=== PATIENT | male | born 1970 | race Caucasian/White ===

== ENCOUNTER 2022-06-26 03:02 | Outpatient (CLI) | payer MEDICAID, SELFPAY ==
[2022-06-26 12:23] LABS: Abs Immature Grans 0.04 10^3/uL (0.0-0.06); Absolute Basophil Count 0.03 10^3/uL (0.0-0.2); Absolute Eosinophil Count 0.19 10^3/uL (0.0-0.7); Absolute Lymphocyte Count 1.03 10^3/uL (1.2-3.4); Absolute Monocyte Count 0.92 10^3/uL (0.1-0.8); Absolute Neutrophil Count 6.21 10^3/uL (1.2-6.7); Basophils % 0.4; Eosinophils % 2.3; HCT 37.9 % (40.0-50.0); HGB 13.4 g/dL (13.5-17.5); Immature Grans % 0.5; Lymphocytes % 12.2; MCH 32.4 pg (27.0-33.0); MCHC 35.4 % (32.0-36.0); MCV 92 fL (80-95); MPV 8.9 fL (8.0-11.0); Monocytes % 10.9; Neutrophils % 73.7; Platelet Count 293 10^3/uL (130-400); RBC 4.13 10^6/uL (4.36-5.78); RDW 10.7 % (11.8-14.1); RDW-SD 36.7 fL; WBC 8.42 10^3/uL (4.4-10.8)
[2022-06-26 12:46] LABS: ALT 32 U/L (16-63); AST 28 U/L (15-37); Albumin 3.5 g/dL (3.4-5.0); Alkaline Phosphatase 67 U/L (46-116); Anion Gap 7.8 mmol/L (3-11); BUN 11 mg/dL (7-18); Bilirubin, Total 0.6 mg/dL (0.2-1.0); CO2 31.2 mmol/L (21.0-32.0); CREATININE 0.8 mg/dL (0.70-1.30); Calcium 9.4 mg/dL (8.5-10.1); Chloride 91 mmol/L (98-107); Estimated GFR 108.49 (mL/min/1.73m2); Glucose 112 mg/dL (74-106); Magnesium 1.7 mg/dL (1.8-2.4); Potassium 3.2 mmol/L (3.5-5.1); Sodium 130 mmol/L (136-145); Total Protein 7.4 g/dL (6.4-8.2)
== END 2022-06-26 03:03 | disposition home or self-care (01) ==
LOC: LBO 03:02
PROVIDERS: PCP Family Medicine; Visit Provider Internal Medicine Hematology & Oncology
DX: C09.9 Malignant neoplasm of tonsil, unspecified (principal)
CPT/HCPCS: 36415; 80053; 83735; 85025

== ENCOUNTER 2022-07-03 03:21 | Outpatient (CLI) | payer MEDICAID, SELFPAY ==
[2022-07-03 12:07] LABS: Abs Immature Grans 0.06 10^3/uL (0.0-0.06); Absolute Monocyte Count 0.95 10^3/uL (0.1-0.8); Basophils % 0.1; HCT 37.3 % (40.0-50.0); HGB 13.3 g/dL (13.5-17.5); Immature Grans % 0.4; Lymphocytes % 3.4; MCH 32.8 pg (27.0-33.0); MCHC 35.7 % (32.0-36.0); MCV 92 fL (80-95); MPV 8.5 fL (8.0-11.0); Monocytes % 6.4; Neutrophils % 89.7; Platelet Count 232 10^3/uL (130-400); RBC 4.06 10^6/uL (4.36-5.78); RDW-SD 37.5 fL; WBC 14.84 10^3/uL (4.4-10.8)
[2022-07-03 12:09] LABS: Absolute Basophil Count 0.01 10^3/uL (0.0-0.2); Absolute Neutrophil Count 13.31 10^3/uL (1.2-6.7)
[2022-07-03 12:23] LABS: ALT 35 U/L (16-63); AST 20 U/L (15-37); Albumin 3.3 g/dL (3.4-5.0); Alkaline Phosphatase 64 U/L (46-116); Anion Gap 7.7 mmol/L (3-11); BUN 19 mg/dL (7-18); Bilirubin, Total 0.3 mg/dL (0.2-1.0); CO2 29.3 mmol/L (21.0-32.0); CREATININE 0.7 mg/dL (0.70-1.30); Calcium 9.4 mg/dL (8.5-10.1); Chloride 94 mmol/L (98-107); Estimated GFR 112.95 (mL/min/1.73m2); Glucose 111 mg/dL (74-106); Magnesium 1.7 mg/dL (1.8-2.4); Potassium 3.7 mmol/L (3.5-5.1); Sodium 131 mmol/L (136-145); Total Protein 7.4 g/dL (6.4-8.2)
== END 2022-07-03 03:22 | disposition home or self-care (01) ==
LOC: LBO 03:21
PROVIDERS: PCP Family Medicine; Visit Provider Internal Medicine Hematology & Oncology
DX: C09.9 Malignant neoplasm of tonsil, unspecified (principal)
CPT/HCPCS: 36415; 80053; 83735; 85025

== ENCOUNTER 2022-07-10 01:52 | Outpatient (CLI) | payer MEDICAID, SELFPAY ==
[2022-07-10 08:09] LABS: Abs Immature Grans 0.05 10^3/uL (0.0-0.06); Absolute Eosinophil Count 0.01 10^3/uL (0.0-0.7); Absolute Lymphocyte Count 0.54 10^3/uL (1.2-3.4); Absolute Monocyte Count 0.86 10^3/uL (0.1-0.8); Absolute Neutrophil Count 4.27 10^3/uL (1.2-6.7); Eosinophils % 0.2; HCT 42.2 % (40.0-50.0); HGB 14.5 g/dL (13.5-17.5); Immature Grans % 0.9; Lymphocytes % 9.4; MCH 32.2 pg (27.0-33.0); MCHC 34.4 % (32.0-36.0); MCV 94 fL (80-95); MPV 7.9 fL (8.0-11.0); Neutrophils % 74.5; Platelet Count 431 10^3/uL (130-400); RBC 4.51 10^6/uL (4.36-5.78); RDW 11.3 % (11.8-14.1); WBC 5.73 10^3/uL (4.4-10.8)
[2022-07-10 08:34] LABS: ALT 62 U/L (16-63); AST 35 U/L (15-37); Albumin 3.6 g/dL (3.4-5.0); Alkaline Phosphatase 63 U/L (46-116); Anion Gap 7.5 mmol/L (3-11); BUN 6 mg/dL (7-18); Bilirubin, Total 0.3 mg/dL (0.2-1.0); CO2 29.5 mmol/L (21.0-32.0); CREATININE 0.7 mg/dL (0.70-1.30); Calcium 9.3 mg/dL (8.5-10.1); Chloride 94 mmol/L (98-107); Estimated GFR 112.95 (mL/min/1.73m2); Glucose 95 mg/dL (74-106); Magnesium 2.1 mg/dL (1.8-2.4); Potassium 3.9 mmol/L (3.5-5.1); Sodium 131 mmol/L (136-145); Total Protein 7.6 g/dL (6.4-8.2)
== END 2022-07-10 01:53 | disposition home or self-care (01) ==
LOC: LBO 01:52
PROVIDERS: PCP Family Medicine; Visit Provider Internal Medicine Hematology & Oncology
DX: C09.9 Malignant neoplasm of tonsil, unspecified (principal)
CPT/HCPCS: 36415; 80053; 83735; 85025

== ENCOUNTER 2022-07-17 02:46 | Outpatient (CLI) | payer MEDICAID, SELFPAY ==
[2022-07-17 08:32] LABS: Abs Immature Grans 0.02 10^3/uL (0.0-0.06); Absolute Basophil Count 0.03 10^3/uL (0.0-0.2); Absolute Eosinophil Count 0.01 10^3/uL (0.0-0.7); Absolute Lymphocyte Count 0.37 10^3/uL (1.2-3.4); Absolute Monocyte Count 0.46 10^3/uL (0.1-0.8); Absolute Neutrophil Count 5.07 10^3/uL (1.2-6.7); Basophils % 0.5; Eosinophils % 0.2; HCT 43.2 % (40.0-50.0); Immature Grans % 0.3; Lymphocytes % 6.2; MCH 32.1 pg (27.0-33.0); MCHC 34.7 % (32.0-36.0); MCV 93 fL (80-95); MPV 8.4 fL (8.0-11.0); Monocytes % 7.7; Neutrophils % 85.1; Platelet Count 189 10^3/uL (130-400); RBC 4.67 10^6/uL (4.36-5.78); RDW 11.4 % (11.8-14.1); RDW-SD 38.5 fL; WBC 5.96 10^3/uL (4.4-10.8)
[2022-07-17 08:47] LABS: ALT 45 U/L (16-63); AST 24 U/L (15-37); Albumin 3.6 g/dL (3.4-5.0); Alkaline Phosphatase 78 U/L (46-116); Anion Gap 5.9 mmol/L (3-11); BUN 15 mg/dL (7-18); Bilirubin, Total 0.4 mg/dL (0.2-1.0); CO2 33.1 mmol/L (21.0-32.0); CREATININE 0.7 mg/dL (0.70-1.30); Calcium 10.2 mg/dL (8.5-10.1); Chloride 94 mmol/L (98-107); Estimated GFR 112.95 (mL/min/1.73m2); Glucose 115 mg/dL (74-106); Magnesium 1.9 mg/dL (1.8-2.4); Potassium 4.4 mmol/L (3.5-5.1); Sodium 133 mmol/L (136-145)
== END 2022-07-17 02:47 | disposition home or self-care (01) ==
LOC: LBO 02:46
PROVIDERS: PCP Family Medicine; Visit Provider Internal Medicine Hematology & Oncology
DX: C09.9 Malignant neoplasm of tonsil, unspecified (principal)
CPT/HCPCS: 36415; 80053; 83735; 85025

== ENCOUNTER 2022-07-24 02:46 | Outpatient (CLI) | payer MEDICAID, SELFPAY ==
[2022-07-24 11:26] LABS: Abs Immature Grans 0.01 10^3/uL (0.0-0.06); Absolute Basophil Count 0.01 10^3/uL (0.0-0.2); Absolute Eosinophil Count 0.12 10^3/uL (0.0-0.7); Absolute Monocyte Count 0.41 10^3/uL (0.1-0.8); Absolute Neutrophil Count 4.43 10^3/uL (1.2-6.7); Basophils % 0.2; Eosinophils % 2.2; HCT 37.8 % (40.0-50.0); HGB 13.5 g/dL (13.5-17.5); Immature Grans % 0.2; Lymphocytes % 7.4; MCH 32.8 pg (27.0-33.0); MCHC 35.7 % (32.0-36.0); MCV 92 fL (80-95); MPV 8.5 fL (8.0-11.0); Monocytes % 7.6; Neutrophils % 82.4; Platelet Count 195 10^3/uL (130-400); RBC 4.11 10^6/uL (4.36-5.78); RDW 11.6 % (11.8-14.1); RDW-SD 38.7 fL; WBC 5.38 10^3/uL (4.4-10.8)
[2022-07-24 11:44] LABS: ALT 31 U/L (16-63); AST 19 U/L (15-37); Albumin 3.3 g/dL (3.4-5.0); Alkaline Phosphatase 88 U/L (46-116); Anion Gap 6.6 mmol/L (3-11); BUN 7 mg/dL (7-18); Bilirubin, Total 0.4 mg/dL (0.2-1.0); CO2 31.4 mmol/L (21.0-32.0); CREATININE 0.7 mg/dL (0.70-1.30); Calcium 9.7 mg/dL (8.5-10.1); Chloride 94 mmol/L (98-107); Estimated GFR 112.95 (mL/min/1.73m2); Glucose 137 mg/dL (74-106); Magnesium 1.7 mg/dL (1.8-2.4); Potassium 4.1 mmol/L (3.5-5.1); Sodium 132 mmol/L (136-145); Total Protein 7.6 g/dL (6.4-8.2)
== END 2022-07-24 02:47 | disposition home or self-care (01) ==
LOC: LBO 02:46
PROVIDERS: PCP Family Medicine; Visit Provider Internal Medicine Hematology & Oncology
DX: C09.9 Malignant neoplasm of tonsil, unspecified (principal)
CPT/HCPCS: 36415; 80053; 83735; 85025

== ENCOUNTER 2022-07-31 02:59 | Outpatient (CLI) | payer MEDICAID, SELFPAY ==
[2022-07-31 08:42] LABS: Abs Immature Grans 0.02 10^3/uL (0.0-0.06); Absolute Basophil Count 0.03 10^3/uL (0.0-0.2); Absolute Eosinophil Count 0.16 10^3/uL (0.0-0.7); Absolute Lymphocyte Count 0.41 10^3/uL (1.2-3.4); Absolute Monocyte Count 0.74 10^3/uL (0.1-0.8); Absolute Neutrophil Count 3.09 10^3/uL (1.2-6.7); Basophils % 0.7; Eosinophils % 3.6; HCT 38.7 % (40.0-50.0); HGB 13.3 g/dL (13.5-17.5); Immature Grans % 0.4; Lymphocytes % 9.2; MCH 32.4 pg (27.0-33.0); MCHC 34.4 % (32.0-36.0); MCV 94 fL (80-95); Monocytes % 16.6; Neutrophils % 69.5; Platelet Count 458 10^3/uL (130-400); RBC 4.11 10^6/uL (4.36-5.78); RDW 12.3 % (11.8-14.1); RDW-SD 42.3 fL; WBC 4.45 10^3/uL (4.4-10.8)
[2022-07-31 09:01] LABS: ALT 26 U/L (16-63); AST 21 U/L (15-37); Albumin 3.3 g/dL (3.4-5.0); Alkaline Phosphatase 75 U/L (46-116); Anion Gap 7.6 mmol/L (3-11); BUN 11 mg/dL (7-18); Bilirubin, Total 0.3 mg/dL (0.2-1.0); CO2 31.4 mmol/L (21.0-32.0); CREATININE 0.7 mg/dL (0.70-1.30); Chloride 97 mmol/L (98-107); Estimated GFR 112.95 (mL/min/1.73m2); Glucose 111 mg/dL (74-106); Magnesium 1.6 mg/dL (1.8-2.4); Potassium 4.7 mmol/L (3.5-5.1); Sodium 136 mmol/L (136-145); Total Protein 7.6 g/dL (6.4-8.2)
== END 2022-07-31 03:00 | disposition home or self-care (01) ==
LOC: LBO 02:59
PROVIDERS: PCP Family Medicine; Visit Provider Internal Medicine Hematology & Oncology
DX: C09.9 Malignant neoplasm of tonsil, unspecified (principal)
CPT/HCPCS: 36415; 80053; 83735; 85025

== ENCOUNTER 2022-08-07 03:09 | Outpatient (CLI) | payer MEDICAID, SELFPAY ==
[2022-08-07 08:24] LABS: Abs Immature Grans 0.02 10^3/uL (0.0-0.06); Absolute Basophil Count 0.06 10^3/uL (0.0-0.2); Absolute Eosinophil Count 0.02 10^3/uL (0.0-0.7); Absolute Lymphocyte Count 0.32 10^3/uL (1.2-3.4); Absolute Monocyte Count 0.74 10^3/uL (0.1-0.8); Absolute Neutrophil Count 4.75 10^3/uL (1.2-6.7); Eosinophils % 0.3; Immature Grans % 0.3; Lymphocytes % 5.4; MCH 32.1 pg (27.0-33.0); MCV 92 fL (80-95); MPV 8.5 fL (8.0-11.0); Monocytes % 12.5; Neutrophils % 80.5; Platelet Count 345 10^3/uL (130-400); RBC 4.36 10^6/uL (4.36-5.78); RDW 12.2 % (11.8-14.1); RDW-SD 40.9 fL; WBC 5.91 10^3/uL (4.4-10.8)
[2022-08-07 08:41] LABS: ALT 31 U/L (16-63); AST 25 U/L (15-37); Albumin 3.6 g/dL (3.4-5.0); Alkaline Phosphatase 65 U/L (46-116); BUN 14 mg/dL (7-18); Bilirubin, Total 0.3 mg/dL (0.2-1.0); CREATININE 0.7 mg/dL (0.70-1.30); Calcium 9.7 mg/dL (8.5-10.1); Chloride 96 mmol/L (98-107); Estimated GFR 112.95 (mL/min/1.73m2); Glucose 121 mg/dL (74-106); Magnesium 1.6 mg/dL (1.8-2.4); Potassium 4.5 mmol/L (3.5-5.1); Sodium 135 mmol/L (136-145); Total Protein 7.6 g/dL (6.4-8.2)
== END 2022-08-07 03:10 | disposition home or self-care (01) ==
PROVIDERS: PCP Family Medicine; Visit Provider Internal Medicine Hematology & Oncology
DX: C09.9 Malignant neoplasm of tonsil, unspecified (principal)
CPT/HCPCS: 36415; 80053; 83735; 85025

== ENCOUNTER 2022-08-14 12:53 | Outpatient (CLI) | payer MEDICAID, SELFPAY ==
[2022-08-14 09:51] LABS: Abs Immature Grans 0.03 10^3/uL (0.0-0.06); Absolute Basophil Count 0.05 10^3/uL (0.0-0.2); Absolute Eosinophil Count 0.05 10^3/uL (0.0-0.7); Absolute Lymphocyte Count 0.51 10^3/uL (1.2-3.4); Absolute Monocyte Count 1.03 10^3/uL (0.1-0.8); Absolute Neutrophil Count 7.72 10^3/uL (1.2-6.7); Basophils % 0.5; Eosinophils % 0.5; HCT 35.6 % (40.0-50.0); HGB 12.4 g/dL (13.5-17.5); Immature Grans % 0.3; Lymphocytes % 5.4; MCH 31.7 pg (27.0-33.0); MCHC 34.8 % (32.0-36.0); MCV 91 fL (80-95); Neutrophils % 82.3; Platelet Count 246 10^3/uL (130-400); RBC 3.91 10^6/uL (4.36-5.78); RDW 12.8 % (11.8-14.1); RDW-SD 41.6 fL; WBC 9.39 10^3/uL (4.4-10.8)
[2022-08-14 10:21] LABS: ALT 31 U/L (16-63); AST 18 U/L (15-37); Albumin 3.4 g/dL (3.4-5.0); Alkaline Phosphatase 65 U/L (46-116); Anion Gap 8.1 mmol/L (3-11); BUN 18 mg/dL (7-18); Bilirubin, Total 0.4 mg/dL (0.2-1.0); CO2 29.9 mmol/L (21.0-32.0); CREATININE 0.8 mg/dL (0.70-1.30); Calcium 9.6 mg/dL (8.5-10.1); Chloride 99 mmol/L (98-107); Estimated GFR 108.49 (mL/min/1.73m2); Glucose 112 mg/dL (74-106); Magnesium 1.8 mg/dL (1.8-2.4); Potassium 4.7 mmol/L (3.5-5.1); Sodium 137 mmol/L (136-145); Total Protein 7.5 g/dL (6.4-8.2)
== END 2022-08-14 12:54 | disposition home or self-care (01) ==
LOC: LBO 12:54
PROVIDERS: PCP Family Medicine; Visit Provider Internal Medicine Hematology & Oncology
DX: C09.9 Malignant neoplasm of tonsil, unspecified (principal)
CPT/HCPCS: 36415; 80053; 83735; 85025

== ENCOUNTER 2022-09-04 00:54 | Outpatient (RCR) | payer MEDICAID, SELFPAY ==
[2022-09-04 10:05] LABS: Abs Immature Grans 0.01 10^3/uL (0.0-0.06); Absolute Basophil Count 0.05 10^3/uL (0.0-0.2); Absolute Eosinophil Count 0.18 10^3/uL (0.0-0.7); Absolute Lymphocyte Count 0.56 10^3/uL (1.2-3.4); Absolute Monocyte Count 0.66 10^3/uL (0.1-0.8); Absolute Neutrophil Count 3.65 10^3/uL (1.2-6.7); Eosinophils % 3.5; HGB 12.7 g/dL (13.5-17.5); Immature Grans % 0.2; MCH 32.4 pg (27.0-33.0); MCHC 35.3 % (32.0-36.0); MCV 92 fL (80-95); MPV 8.8 fL (8.0-11.0); Monocytes % 12.9; Neutrophils % 71.4; Platelet Count 271 10^3/uL (130-400); RBC 3.92 10^6/uL (4.36-5.78); RDW 13.7 % (11.8-14.1); WBC 5.11 10^3/uL (4.4-10.8)
[2022-09-04 10:19] LABS: ALT 21 U/L (16-63); AST 16 U/L (15-37); Albumin 3.9 g/dL (3.4-5.0); Alkaline Phosphatase 62 U/L (46-116); Anion Gap 6.4 mmol/L (3-11); BUN 12 mg/dL (7-18); Bilirubin, Total 0.5 mg/dL (0.2-1.0); CO2 30.6 mmol/L (21.0-32.0); CREATININE 0.7 mg/dL (0.70-1.30); Calcium 9.6 mg/dL (8.5-10.1); Chloride 96 mmol/L (98-107); Estimated GFR 112.95 (mL/min/1.73m2); Glucose 113 mg/dL (74-106); Magnesium 1.8 mg/dL (1.8-2.4); Potassium 4.1 mmol/L (3.5-5.1); Sodium 133 mmol/L (136-145); Total Protein 7.4 g/dL (6.4-8.2)
== END 2022-09-24 23:59 | disposition home or self-care (01) ==
LOC: INF 00:54
PROVIDERS: PCP Family Medicine; Visit Provider Internal Medicine Hematology & Oncology
DX: C09.9 Malignant neoplasm of tonsil, unspecified (principal)
CPT/HCPCS: 36415; 80053; 83735; 85025

== ENCOUNTER 2022-09-18 00:57 | Outpatient (CLI) | payer MEDICAID, SELFPAY ==
[2022-09-18] MEDS: Barium Sulfate 700 MG TAB PO (09:28)
--- NOTE | 2022-09-18 09:28 | DI.RAD_ITS ---
Exam(s) RF MODIFIED SPEECH BA SWALLOW TECHNIQUE: Modified barium swallow was performed in conjunction with speech pathology. CONTRAST MATERIAL: Oral barium contrast was administered. COMPARISON: No exams were available for comparison FINDINGS: Note that this is not a dedicated esophagram, distal esophagus not evaluated. There is no evidence of aspiration of thick or thin liquids, barium pudding or barium coated cracker. There was some penetration noted during the examination. Speech pathology report to follow. IMPRESSION: No evidence of aspiration. Please refer to the speech pathology report for complete details. RADIATION DOSE DELIVERED: ellen Nielsen=11.8 mGy
--- NOTE | 2022-09-18 09:29 | ST.MBS ---
Date of Service Date of service: 09/18/22 Time of Service: 09:29 Modified Barium Swallow Study Findings: Video fluoroscopic Swallowing Evaluation (VFSE) / Modified Barium Swallow Study (MBSS) Speech Language Pathology Report Patient referred for VFSE/MBSS from Susna Cabral APRN given recent completion of concurrent chemotherapy and radiotherapy for head/neck cancer treatment with impact on swallow function. 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 Initial symptoms included severe pain, trismus, numbness, fluid discharge. Patient completed concurrent chemo/radiotherapy 08/08/22. He had a feeding tube placed and this remains in place. 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 At this time, he reports improved trismus, and does not feel he has significant difficulty with swallow function except that he has very poor appetite and significantly reduced taste sensation. Due to these issues, he is relying quite heavily on feeding tube for nutrition at this time. He states that the only food he can really taste at this time is lemon. Medical History?(Updated 07/28/22 @ 14:19 by Meli Rick NP) Abnormal finding on MRI of brain Anxiety Cancer related pain Tonsil cancer Previous Imaging: n/a IMPRESSIONS: Swallow safety is preserved; swallow efficiency is impaired. Mild chronic oropharyngoesophageal dysphagia. Characterized by reduced oral transit and tongue base retraction, reduced hyo-laryngeal and pharyngeal motility and reduced UES distension duration. Despite these deficits, patient swallow function is overall safe without evidence of aspiration or deep/persistent laryngeal penetration. Patient with significant oral-pharyngeal residue only for dry solids, suspect xerostomia and reduced lingual function are complicating factors. Patient also with prolonged, slow mastication due to lingual changes (he complains of frequently biting his tongue, needing to chew slowly and carefully). Patient appears to be at low risk for potential aspiration PNA and/or pulmonary compromise and moderate/high risk for malnutrition, low risk for dehydration. This is due to his limited PO intake due to taste and appetite changes. Diet modification is indicated primarily for ease of chewing; non-oral nutrition is indicated given patient's level of appetite and taste alteration. Would benefit from encouragement to incorporate gradual increasing of PO intake and gradual reduction of enteral feeding with guidance of RD. Swallow prognosis is excellentfair given: Positive prognostic factors: Age, Severity, Time since onset, Negative prognostic factors: Motivation, Relative dose of Chemotherapy and/or radiation treatment, Surgical/anatomical factors, and pending patient/caregiver training in risk management as outlined, including use of trialed compensatory strategies. Patient appears to be a good candidate for behavioral swallow rehabilitation. RECOMMENDATIONS: Diet Texture Recommendation:? IDDSI LEVEL SOLIDS 7-Regular/Easy to Chew Solids LIQUIDS 0-Thin Liquids Please see further details at?[email or web address] MEDICATIONS Whole with 0-Thin Liquids or 4-Puree Diet texture modification is per patient's preference; please adjust diet textures at patient's discretion & collaboration with care team. Do not alter medications (e.g., cut)? without advice from your MD or pharmacist. Risk Management Strategies:? Behavioral reflux precautions, including upright position during + 90 mins after meals. Small bites, approx [id number] Small sips, approx 10 mL Alternate solids/liquids as able Multiple swallows per bolus to encourage clearance of pharyngeal stasis/residue Control risk factors for aspiration pneumonia via (a) thorough oral hygiene & (b) maintaining physical mobility as tolerated PLAN: Therapy: Recommend subsequent outpatient session with STRUCTURAL ANALYST to review results of today's exam and develop treatment plan as appropriate. May consider the following: Oropharyngeal Exercises to target deficits noted in objective section above, Further Compensatory Strategy Training ,Further Training/Education in Risk Management, Further Counseling re: Options for maintaining quality of life in context of dysphagia presentation Goals: TBD pending patient/caregiver interview Follow-up exam: Recommend repeat VFSE/MBSS PRN or following treatment course ----- OBJECTIVE Videofluoroscopic Swallow Evaluation (VFSE/MBSS) was conducted in the lateral and [id number] projection by Speech-Language Pathologist, in collaboration with Radiologist, to evaluate oropharyngeal swallow function. Anatomic view under fluoroscopy: WFL PO Barium Contrast Trials Oral barium water-soluble contrast was administered as follows: IDDSI Level 0 Varibar thin liquid (40% w/v) IDDSI Level 2 Varibar nectar thick/mildly thick liquid (40% w/v) IDDSI Level 4 Varibar pudding/pureed/extremely thick (40% w/v) IDDSI Level 7 Regular Solid: 1/2 kiran cracker coated in 3 mL Varibar pudding 13 mm barium tablet taken with Thin Liquids. MBSImP Component Scores: COMPONENT Scale SCORE 1 Lip closure (0-4) 0 Resulted in no labial escape 2 Hold Position (0-3) 1 Allowed bolus escape to lateral buccal cavity/floor of mouth 3 Bolus Preparation (0-4) 1 Resulted in slow prolonged chewing/mashing with complete re-collection 4 Bolus Transport (0-4) 2 Was with slowed tongue motion 5 Oral Residue (0-4) 3 Was the majority of bolus remaining 6 Swallow Initiation (0-4) 2 Occurred as bolus head at posterior laryngeal surface of epiglottis 7 Soft Palate Elevation (0-4) 0 Resulted in no bolus between soft palate and the pharyngeal wall 8 Laryngeal Elevation (0-3) 1 Was decreased with partial superior movement of thyroid cartilage/partial approximation of arytenoids to epiglottic petiole 9 Anterior Hyoid Motion (0-2) 1 Demonstrated partial anterior movement 10 Epiglottic Movement (0-2) 0 Resulted in complete inversion 11 Laryngeal Closure (0-2) 1 Was incomplete with narrow a column of air/contrast in laryngeal vestibule 12 Pharyngeal Stripping Wave (0-2) 1 Was present, but diminished 13 Pharyngeal Contraction (0-3) 2 Resulted in unilateral Bulging 14 PES Opening (0-3) 1 Demonstrated partial distension/partial duration, with partial obstruction of flow 15 Tongue Base Retraction (0-4) 2 Allowed a narrow column of contrast or air between the retracted tongue base and the posterior pharyngeal wall 16 Pharyngeal Residue (0-4) 2 Was a collection of residue within or on pharyngeal structures 17 Esophageal Clearance (0-4) 1 Resulted in esophageal retention Results: COMPONENT Scale SCORE 1 Oral Score (0-18) 9 2 Pharyngeal Score (0-29) 11 3 Esophageal Score (0-4) 1 Dysphagia Outcome and Severity Scale: COMPONENT Scale SCORE 1 LEVEL (1-7) 5 Full PO: Modified Diet and/or [place] - Mild dysphagia; Distant supervision may need 1 diet consistency restricted Penetration-Aspiration Scale: COMPONENT Scale SCORE 1 Thin liquid (1-8) 2 Contrast entered the airway, remained above the vocal folds, and was ejected from the airway. 2 Fate thick (1-8) 1 Contrast did not enter the airway 3 Honey thick (1-8) NA 4 Pudding thick (1-8) 1 Contrast did not enter the airway 5 Cookie (1-8) 1 Contrast did not enter the airway Functional Oral Intake Scale: COMPONENT Scale SCORE 1 Pre-Study (1-7) 2 Tube dependent with minimal/inconsistent oral intake 2 Post-Study (1-7) 2 Tube dependent with minimal/inconsistent oral intake DIGEST: COMPONENT Scale SCORE 1 Thin Max PAS (1-8) 2 Contrast entered the airway, remained above the vocal folds, and was ejected from the airway. 2 Fate Max PAS (1-8) 1 Contrast did not enter the airway 3 Honey Max PAS (1-8) NA 4 Liquid Max PAS (1-8) 2 Maximum PAS Score over all liquid trials 5 Liquid Max Residue (0-3) NA 6 Pudding Max PAS (1-8) 1 Contrast did not enter the airway 7 Pudding Max Residue (0-3) 0 below 10% 8 Cracker Max PAS (1-8) 1 Contrast did not enter the airway 9 Cracker Max Residue (0-3) 2 50 - 90% 10 Frequency if PAS >= 3 (0-3) NA 11 Amount if PAS >= 5 (0-1) NA Results: COMPONENT Scale SCORE 1 SAFETY GRADE (0-4) 0 Safety grade for swallowing based on patterns of aspiration or laryngeal penetration 2 EFFICIENCY GRADE (0-4) 2 Efficiency grade of swallowing based on patterns of pharyngeal residue 3 DIGEST (0-4) 1 Severity grade of pharyngeal dysphagia: 0 - Normal, 1 - Mild, 2 - Moderate, 3 - Severe, 4 - Life threatening 4 Max Exam PAS (1-8) 2 Maximum PAS Score over all bolus trials 5 Max Exam Residue (0-3) 2 Maximum Exam Residue over all bolus trials Observations not captured in quantitative data: Dry solids resulted in significant oral and vallecular residue, while pudding resulted in only trace residue. Flash penetration of thin liquids with large/consecutive volumes. Reduced duration/extent of UES distension resulting in trace column of contrast within UES upon swallow completion and ?retrograde flow resulting in scant/trace pyriform sinus residue. Barium tablet transited oral cavity and pharynx without difficulty and was not retained in esophagus. Trialed Compensatory Strategies & Outcome: Maneuvers Successful (+) Unsuccessful (-) Postures Successful (+) Unsuccessful (-) 3 second Preparatory Set? ? +/- Chin Tuck Posture? ? Cough? ? Posterior Head tilt? Reflexive? Cued? Throat Clear? ? Head Tilt to? Reflexive? Left? Cued? Right? ? Saliva swallow? ? + Head Turn/Rotate to? ? Supraglottic Swallow? Left? ? Super-supraglottic Swallow? Right? ? + (possible mild benefit) Bolus Modifications Successful (+) Unsuccessful (-) Delivery/Alternating Consistencies ? Follow with Liquid Wash + ? Follow with Solid Bolus? Delivery/Via Straw? ? Reduced Volume? ? + Reduced Rate of Intake? ? + Increased Viscosity? ? Other:?? ? Thank you for allowing us to take part in this patient's care. Please feel free to contact the [facility] Speech Language Pathology Department with any questions/concerns. Coding CPT Codes MOTION FLUOROSCOPY/SWALLOW - [id number] ([id number])
[2022-09-18] MEDS: Barium Sulfate 40% W/V 240 ML BTL 35 ML PO (09:32)
[2022-09-18] MEDS: Barium Sulfate Oral Paste 40% W/V 230 ML TUBE 13 ML PO (09:33)
[2022-09-18] MEDS: Barium Sulfate 81% w/w for Oral Suspension 148 GM BTL 100 GM PO (09:39)
== END 2022-09-18 01:17 ==
LOC: DI 00:58
PROVIDERS: PCP Family Medicine; Visit Provider Nurse Practitioner Adult Health
DX: R13.12 Dysphagia, oropharyngeal phase (principal)
CPT/HCPCS: 92611; 74221

== ENCOUNTER 2023-03-26 02:58 | Outpatient (RCR) | payer BC, MEDICAID, SELFPAY ==
[2023-03-05] MEDS: Normal Saline Flush 10 ML SYR IVP (10:11)
[2023-03-05 10:17] LABS: Abs Immature Grans 0.08 10^3/uL (0.0-0.06); Absolute Basophil Count 0.06 10^3/uL (0.0-0.2); Absolute Eosinophil Count 0.19 10^3/uL (0.0-0.7); Absolute Lymphocyte Count 0.58 10^3/uL (1.2-3.4); Absolute Monocyte Count 0.52 10^3/uL (0.1-0.8); Basophils % 0.5; Eosinophils % 1.7; HCT 45.9 % (40.0-50.0); HGB 15.7 g/dL (13.5-17.5); Immature Grans % 0.7; Lymphocytes % 5.2; MCH 30.1 pg (27.0-33.0); MCHC 34.2 % (32.0-36.0); MCV 88 fL (80-95); MPV 9.5 fL (8.0-11.0); Monocytes % 4.6; Neutrophils % 87.3; Platelet Count 295 10^3/uL (130-400); RBC 5.22 10^6/uL (4.36-5.78); RDW 12.7 % (11.8-14.1); WBC 11.22 10^3/uL (4.4-10.8)
[2023-03-05 10:41] LABS: ALT 22 U/L (16-63); AST 21 U/L (15-37); Albumin 4.4 g/dL (3.4-5.0); Alkaline Phosphatase 89 U/L (46-116); Anion Gap 9.9 mmol/L (3-11); BUN 19 mg/dL (7-18); Bilirubin, Total 0.7 mg/dL (0.2-1.0); CO2 26.1 mmol/L (21.0-32.0); Calcium 9.9 mg/dL (8.5-10.1); Chloride 94 mmol/L (98-107); Estimated GFR 91.69 (mL/min/1.73m2); Glucose 122 mg/dL (74-106); Potassium 3.6 mmol/L (3.5-5.1); Sodium 130 mmol/L (136-145); TSH 2.15 uIU/mL (0.36-3.74); Total Protein 8.8 g/dL (6.4-8.2)
[2023-03-05 11:57] LABS: Magnesium 2.1 mg/dL (1.8-2.4)
[2023-03-12] MEDS: Normal Saline Flush 10 ML SYR IVP (12:50)
[2023-03-12 13:28] LABS: Absolute Basophil Count 0.02 10^3/uL (0.0-0.2); Absolute Eosinophil Count 0.04 10^3/uL (0.0-0.7); Absolute Lymphocyte Count 0.53 10^3/uL (1.2-3.4); Absolute Neutrophil Count 1.86 10^3/uL (1.2-6.7); Basophils % 0.7; Eosinophils % 1.4; HCT 38.2 % (40.0-50.0); HGB 13.4 g/dL (13.5-17.5); Lymphocytes % 18.6; MCH 30.6 pg (27.0-33.0); MCHC 35.1 % (32.0-36.0); MCV 87 fL (80-95); Neutrophils % 65.3; Platelet Count 138 10^3/uL (130-400); RBC 4.38 10^6/uL (4.36-5.78); RDW 12.2 % (11.8-14.1); RDW-SD 39.1 fL; WBC 2.85 10^3/uL (4.4-10.8)
[2023-03-12 13:50] LABS: ALT 19 U/L (16-63); AST 14 U/L (15-37); Albumin 3.8 g/dL (3.4-5.0); Alkaline Phosphatase 82 U/L (46-116); Anion Gap 6.1 mmol/L (3-11); BUN 19 mg/dL (7-18); Bilirubin, Total 0.2 mg/dL (0.2-1.0); CO2 28.9 mmol/L (21.0-32.0); CREATININE 0.8 mg/dL (0.70-1.30); Calcium 9.6 mg/dL (8.5-10.1); Chloride 99 mmol/L (98-107); Estimated GFR 107.82 (mL/min/1.73m2); FREE T4 1.02 ng/dL (0.76-1.46); Glucose 119 mg/dL (74-106); Potassium 3.9 mmol/L (3.5-5.1); Sodium 134 mmol/L (136-145); TSH 1.41 uIU/mL (0.36-3.74); Total Protein 7.9 g/dL (6.4-8.2)
[2023-03-12 15:36] LABS: Magnesium 1.8 mg/dL (1.8-2.4)
[2023-03-19] MEDS: Normal Saline Flush 10 ML SYR IVP (09:53)
[2023-03-19 10:10] LABS: Absolute Basophil Count 0.02 10^3/uL (0.0-0.2); Absolute Eosinophil Count 0.08 10^3/uL (0.0-0.7); Absolute Lymphocyte Count 0.58 10^3/uL (1.2-3.4); Absolute Monocyte Count 0.53 10^3/uL (0.1-0.8); Absolute Neutrophil Count 2.25 10^3/uL (1.2-6.7); Basophils % 0.6; Eosinophils % 2.3; HCT 39.2 % (40.0-50.0); HGB 13.8 g/dL (13.5-17.5); Lymphocytes % 16.8; MCH 31.1 pg (27.0-33.0); MCHC 35.2 % (32.0-36.0); MCV 88 fL (80-95); MPV 9.6 fL (8.0-11.0); Monocytes % 15.3; Platelet Count 162 10^3/uL (130-400); RBC 4.44 10^6/uL (4.36-5.78); RDW 13.4 % (11.8-14.1); RDW-SD 41.6 fL; WBC 3.46 10^3/uL (4.4-10.8)
[2023-03-19 10:29] LABS: ALT 26 U/L (16-63); AST 25 U/L (15-37); Albumin 3.8 g/dL (3.4-5.0); Alkaline Phosphatase 78 U/L (46-116); Anion Gap 9.6 mmol/L (3-11); BUN 19 mg/dL (7-18); Bilirubin, Total 0.2 mg/dL (0.2-1.0); CO2 28.4 mmol/L (21.0-32.0); CREATININE 0.7 mg/dL (0.70-1.30); Calcium 9.7 mg/dL (8.5-10.1); Chloride 98 mmol/L (98-107); Estimated GFR 112.25 (mL/min/1.73m2); Glucose 117 mg/dL (74-106); Magnesium 1.9 mg/dL (1.8-2.4); Potassium 3.5 mmol/L (3.5-5.1); Sodium 136 mmol/L (136-145); Total Protein 7.9 g/dL (6.4-8.2)
[2023-03-26] MEDS: Normal Saline Flush 10 ML SYR IVP (09:37)
[2023-03-26 09:44] LABS: Abs Immature Grans 0.06 10^3/uL (0.0-0.06); Absolute Basophil Count 0.06 10^3/uL (0.0-0.2); Absolute Eosinophil Count 0.02 10^3/uL (0.0-0.7); Absolute Lymphocyte Count 0.49 10^3/uL (1.2-3.4); Absolute Monocyte Count 0.13 10^3/uL (0.1-0.8); Absolute Neutrophil Count 6.33 10^3/uL (1.2-6.7); Basophils % 0.8; Eosinophils % 0.3; HCT 43.7 % (40.0-50.0); HGB 15.4 g/dL (13.5-17.5); Immature Grans % 0.8; Lymphocytes % 6.9; MCH 30.9 pg (27.0-33.0); MCHC 35.2 % (32.0-36.0); MCV 88 fL (80-95); MPV 8.9 fL (8.0-11.0); Monocytes % 1.8; Neutrophils % 89.4; Platelet Count 307 10^3/uL (130-400); RBC 4.98 10^6/uL (4.36-5.78); RDW 13.4 % (11.8-14.1); WBC 7.09 10^3/uL (4.4-10.8)
[2023-03-26 10:00] LABS: ALT 28 U/L (16-63); AST 19 U/L (15-37); Albumin 4.2 g/dL (3.4-5.0); Alkaline Phosphatase 87 U/L (46-116); Anion Gap 13.1 mmol/L (3-11); BUN 17 mg/dL (7-18); Bilirubin, Total 0.4 mg/dL (0.2-1.0); CO2 25.9 mmol/L (21.0-32.0); CREATININE 0.9 mg/dL (0.70-1.30); Calcium 9.6 mg/dL (8.5-10.1); Chloride 99 mmol/L (98-107); Estimated GFR 104.05 (mL/min/1.73m2); Glucose 127 mg/dL (74-106); Magnesium 1.8 mg/dL (1.8-2.4); Potassium 3.6 mmol/L (3.5-5.1); Sodium 138 mmol/L (136-145); Total Protein 8.1 g/dL (6.4-8.2)
== END 2023-03-27 23:59 | disposition home or self-care (01) ==
LOC: INF 02:58
PROVIDERS: PCP Family Medicine; Visit Provider Internal Medicine Hematology & Oncology
DX: C09.9 Malignant neoplasm of tonsil, unspecified (principal); R53.83 Other fatigue; Z45.2 Encounter for adjustment and management of vascular access device
CPT/HCPCS: 36591; 80053; 83735; 84439; 84443; 85025

== ENCOUNTER 2023-04-23 02:25 | Outpatient (RCR) | payer BC, MEDICAID, SELFPAY ==
[2023-04-02] MEDS: Normal Saline Flush 10 ML SYR IVP (10:16)
[2023-04-02 10:30] LABS: Abs Immature Grans 0.01 10^3/uL (0.0-0.06); Absolute Basophil Count 0.01 10^3/uL (0.0-0.2); Absolute Eosinophil Count 0.01 10^3/uL (0.0-0.7); Absolute Monocyte Count 0.36 10^3/uL (0.1-0.8); Absolute Neutrophil Count 0.67 10^3/uL (1.2-6.7); Basophils % 0.7; Eosinophils % 0.7; HCT 35.7 % (40.0-50.0); HGB 12.9 g/dL (13.5-17.5); Immature Grans % 0.7; Lymphocytes % 27.4; MCH 31.4 pg (27.0-33.0); MCHC 36.1 % (32.0-36.0); MCV 87 fL (80-95); MPV 9.2 fL (8.0-11.0); Monocytes % 24.7; Neutrophils % 45.8; Platelet Count 102 10^3/uL (130-400); RBC 4.11 10^6/uL (4.36-5.78); RDW 12.9 % (11.8-14.1); RDW-SD 39.8 fL
[2023-04-02 10:34] LABS: WBC 1.46 10^3/uL (4.4-10.8)
[2023-04-02 10:39] LABS: Diff Comment Diff Reviewed; RBC Morphology Normal
[2023-04-02 10:49] LABS: ALT 26 U/L (16-63); AST 20 U/L (15-37); Albumin 3.5 g/dL (3.4-5.0); Alkaline Phosphatase 77 U/L (46-116); Anion Gap 10.6 mmol/L (3-11); BUN 18 mg/dL (7-18); Bilirubin, Total 0.2 mg/dL (0.2-1.0); CO2 26.4 mmol/L (21.0-32.0); CREATININE 0.8 mg/dL (0.70-1.30); Calcium 9.3 mg/dL (8.5-10.1); Chloride 98 mmol/L (98-107); Estimated GFR 107.82 (mL/min/1.73m2); Glucose 131 mg/dL (74-106); Magnesium 1.4 mg/dL (1.8-2.4); Potassium 3.6 mmol/L (3.5-5.1); Sodium 135 mmol/L (136-145); Total Protein 7.3 g/dL (6.4-8.2)
[2023-04-09] MEDS: Normal Saline Flush 10 ML SYR IVP (09:38)
[2023-04-09 10:07] LABS: Abs Immature Grans 0.03 10^3/uL (0.0-0.06); Absolute Basophil Count 0.03 10^3/uL (0.0-0.2); Absolute Eosinophil Count 0.04 10^3/uL (0.0-0.7); Absolute Lymphocyte Count 0.62 10^3/uL (1.2-3.4); Absolute Monocyte Count 0.56 10^3/uL (0.1-0.8); Absolute Neutrophil Count 2.66 10^3/uL (1.2-6.7); Basophils % 0.8; HCT 36.9 % (40.0-50.0); HGB 13.1 g/dL (13.5-17.5); Immature Grans % 0.8; Lymphocytes % 15.7; MCH 31.2 pg (27.0-33.0); MCHC 35.5 % (32.0-36.0); MCV 88 fL (80-95); MPV 9.5 fL (8.0-11.0); Monocytes % 14.2; Neutrophils % 67.5; Platelet Count 190 10^3/uL (130-400); RDW 14.7 % (11.8-14.1); RDW-SD 42.7 fL; WBC 3.94 10^3/uL (4.4-10.8)
[2023-04-09 10:26] LABS: ALT 24 U/L (16-63); AST 22 U/L (15-37); Albumin 3.6 g/dL (3.4-5.0); Alkaline Phosphatase 79 U/L (46-116); Anion Gap 7.8 mmol/L (3-11); BUN 14 mg/dL (7-18); Bilirubin, Total 0.2 mg/dL (0.2-1.0); CO2 31.2 mmol/L (21.0-32.0); CREATININE 0.8 mg/dL (0.70-1.30); Calcium 9.7 mg/dL (8.5-10.1); Chloride 100 mmol/L (98-107); Estimated GFR 107.82 (mL/min/1.73m2); Glucose 128 mg/dL (74-106); Magnesium 1.8 mg/dL (1.8-2.4); Potassium 3.9 mmol/L (3.5-5.1); Sodium 139 mmol/L (136-145); Total Protein 7.9 g/dL (6.4-8.2)
[2023-04-23 10:27] LABS: Absolute Basophil Count 0.01 10^3/uL (0.0-0.2); Absolute Eosinophil Count 0.04 10^3/uL (0.0-0.7); Absolute Lymphocyte Count 0.56 10^3/uL (1.2-3.4); Absolute Monocyte Count 0.68 10^3/uL (0.1-0.8); Absolute Neutrophil Count 1.82 10^3/uL (1.2-6.7); Basophils % 0.3; Eosinophils % 1.3; HCT 34.3 % (40.0-50.0); HGB 12.3 g/dL (13.5-17.5); MCH 32.2 pg (27.0-33.0); MCHC 35.9 % (32.0-36.0); MCV 90 fL (80-95); MPV 9.4 fL (8.0-11.0); Monocytes % 21.9; Neutrophils % 58.5; Platelet Count 164 10^3/uL (130-400); RBC 3.82 10^6/uL (4.36-5.78); RDW 15.8 % (11.8-14.1); RDW-SD 46.2 fL; WBC 3.11 10^3/uL (4.4-10.8)
[2023-04-23 10:42] LABS: ALT 24 U/L (16-63); AST 14 U/L (15-37); Albumin 3.7 g/dL (3.4-5.0); Alkaline Phosphatase 77 U/L (46-116); Anion Gap 10.4 mmol/L (3-11); BUN 11 mg/dL (7-18); Bilirubin, Total 0.2 mg/dL (0.2-1.0); CO2 28.6 mmol/L (21.0-32.0); CREATININE 0.7 mg/dL (0.70-1.30); Calcium 9.1 mg/dL (8.5-10.1); Chloride 101 mmol/L (98-107); Estimated GFR 112.25 (mL/min/1.73m2); Glucose 111 mg/dL (74-106); Magnesium 1.6 mg/dL (1.8-2.4); Potassium 3.9 mmol/L (3.5-5.1); Sodium 140 mmol/L (136-145); Total Protein 7.6 g/dL (6.4-8.2)
[2023-04-23] MEDS: Normal Saline Flush 10 ML SYR IVP (11:22)
== END 2023-04-26 23:59 | disposition home or self-care (01) ==
LOC: INF 02:25
PROVIDERS: PCP Family Medicine; Visit Provider Internal Medicine Hematology & Oncology
DX: C09.9 Malignant neoplasm of tonsil, unspecified (principal); Z45.2 Encounter for adjustment and management of vascular access device
CPT/HCPCS: 36591; 80053; 83735; 85025

== ENCOUNTER 2023-05-14 01:57 | Outpatient (RCR) | payer BC, MEDICAID, SELFPAY ==
[2023-04-30] MEDS: Normal Saline Flush 10 ML SYR IVP (08:21)
[2023-04-30 08:25] LABS: Abs Immature Grans 0.01 10^3/uL (0.0-0.06); Absolute Basophil Count 0.02 10^3/uL (0.0-0.2); Absolute Eosinophil Count 0.12 10^3/uL (0.0-0.7); Absolute Lymphocyte Count 0.75 10^3/uL (1.2-3.4); Absolute Monocyte Count 0.76 10^3/uL (0.1-0.8); Absolute Neutrophil Count 1.61 10^3/uL (1.2-6.7); Basophils % 0.6; Eosinophils % 3.7; HCT 33.9 % (40.0-50.0); HGB 11.8 g/dL (13.5-17.5); Immature Grans % 0.3; Lymphocytes % 22.9; MCHC 34.8 % (32.0-36.0); MCV 92 fL (80-95); MPV 9.4 fL (8.0-11.0); Monocytes % 23.2; Neutrophils % 49.3; Platelet Count 168 10^3/uL (130-400); RBC 3.69 10^6/uL (4.36-5.78); RDW-SD 58.4 fL; WBC 3.27 10^3/uL (4.4-10.8)
[2023-04-30 08:55] LABS: ALT 21 U/L (16-63); AST 13 U/L (15-37); Albumin 3.5 g/dL (3.4-5.0); Alkaline Phosphatase 79 U/L (46-116); Anion Gap 7.5 mmol/L (3-11); BUN 15 mg/dL (7-18); Bilirubin, Total 0.2 mg/dL (0.2-1.0); CO2 29.5 mmol/L (21.0-32.0); CREATININE 0.7 mg/dL (0.70-1.30); Calcium 9.7 mg/dL (8.5-10.1); Chloride 101 mmol/L (98-107); Estimated GFR 112.25 (mL/min/1.73m2); Glucose 108 mg/dL (74-106); Magnesium 1.5 mg/dL (1.8-2.4); Potassium 3.8 mmol/L (3.5-5.1); Sodium 138 mmol/L (136-145); Total Protein 7.5 g/dL (6.4-8.2)
[2023-05-07] MEDS: Normal Saline Flush 10 ML SYR IVP (11:32)
[2023-05-07 11:57] LABS: Abs Immature Grans 0.04 10^3/uL (0.0-0.06); Absolute Basophil Count 0.04 10^3/uL (0.0-0.2); Absolute Eosinophil Count 0.04 10^3/uL (0.0-0.7); Absolute Monocyte Count 0.28 10^3/uL (0.1-0.8); Absolute Neutrophil Count 3.85 10^3/uL (1.2-6.7); Basophils % 0.8; Eosinophils % 0.8; HCT 33.1 % (40.0-50.0); HGB 11.7 g/dL (13.5-17.5); Immature Grans % 0.8; Lymphocytes % 10.5; MCH 32.5 pg (27.0-33.0); MCHC 35.3 % (32.0-36.0); MCV 92 fL (80-95); MPV 9.5 fL (8.0-11.0); Monocytes % 5.9; Neutrophils % 81.2; Platelet Count 302 10^3/uL (130-400); RDW 17.7 % (11.8-14.1); RDW-SD 57.9 fL; WBC 4.75 10^3/uL (4.4-10.8)
[2023-05-07 12:28] LABS: ALT 19 U/L (16-63); AST 14 U/L (15-37); Albumin 3.7 g/dL (3.4-5.0); Alkaline Phosphatase 76 U/L (46-116); Anion Gap 10.1 mmol/L (3-11); BUN 13 mg/dL (7-18); Bilirubin, Total 0.4 mg/dL (0.2-1.0); CO2 27.9 mmol/L (21.0-32.0); CREATININE 0.7 mg/dL (0.70-1.30); Calcium 9.1 mg/dL (8.5-10.1); Chloride 100 mmol/L (98-107); Estimated GFR 112.25 (mL/min/1.73m2); Glucose 103 mg/dL (74-106); Magnesium 1.6 mg/dL (1.8-2.4); Potassium 3.9 mmol/L (3.5-5.1); Sodium 138 mmol/L (136-145); Total Protein 7.5 g/dL (6.4-8.2)
[2023-05-14 11:07] LABS: Abs Immature Grans 0.01 10^3/uL (0.0-0.06); Absolute Basophil Count 0.02 10^3/uL (0.0-0.2); Absolute Eosinophil Count 0.05 10^3/uL (0.0-0.7); Absolute Lymphocyte Count 0.48 10^3/uL (1.2-3.4); Absolute Monocyte Count 0.48 10^3/uL (0.1-0.8); Basophils % 0.5; Eosinophils % 1.4; HCT 33.2 % (40.0-50.0); HGB 11.7 g/dL (13.5-17.5); Immature Grans % 0.3; Lymphocytes % 13.2; MCH 33.2 pg (27.0-33.0); MCHC 35.2 % (32.0-36.0); MCV 94 fL (80-95); MPV 9.7 fL (8.0-11.0); Monocytes % 13.2; Neutrophils % 71.4; Platelet Count 219 10^3/uL (130-400); RBC 3.52 10^6/uL (4.36-5.78); RDW 19.7 % (11.8-14.1); RDW-SD 64.4 fL; WBC 3.64 10^3/uL (4.4-10.8)
[2023-05-14 11:29] LABS: ALT 21 U/L (16-63); AST 17 U/L (15-37); Albumin 3.7 g/dL (3.4-5.0); Alkaline Phosphatase 78 U/L (46-116); Anion Gap 9.1 mmol/L (3-11); BUN 14 mg/dL (7-18); Bilirubin, Total 0.2 mg/dL (0.2-1.0); CO2 27.9 mmol/L (21.0-32.0); CREATININE 0.8 mg/dL (0.70-1.30); Calcium 9.3 mg/dL (8.5-10.1); Chloride 101 mmol/L (98-107); Estimated GFR 107.82 (mL/min/1.73m2); Glucose 119 mg/dL (74-106); Magnesium 1.7 mg/dL (1.8-2.4); Potassium 3.8 mmol/L (3.5-5.1); Sodium 138 mmol/L (136-145); Total Protein 7.5 g/dL (6.4-8.2)
[2023-05-14] MEDS: Normal Saline Flush 10 ML SYR IVP (11:54)
== END 2023-05-27 23:59 | disposition home or self-care (01) ==
LOC: INF 01:57
PROVIDERS: PCP Family Medicine; Visit Provider Internal Medicine Hematology & Oncology
DX: C09.9 Malignant neoplasm of tonsil, unspecified (principal); Z45.2 Encounter for adjustment and management of vascular access device
CPT/HCPCS: 36591; 80053; 83735; 85025

== ENCOUNTER 2023-06-25 03:08 | Outpatient (RCR) | payer BC, MEDICAID, SELFPAY ==
[2023-05-29] MEDS: Normal Saline Flush 10 ML SYR IVP (07:53)
[2023-05-29 08:37] LABS: Abs Immature Grans 0.03 10^3/uL (0.0-0.06); Absolute Basophil Count 0.04 10^3/uL (0.0-0.2); Absolute Eosinophil Count 0.18 10^3/uL (0.0-0.7); Absolute Lymphocyte Count 0.68 10^3/uL (1.2-3.4); Absolute Monocyte Count 0.57 10^3/uL (0.1-0.8); Absolute Neutrophil Count 4.08 10^3/uL (1.2-6.7); Basophils % 0.7; Eosinophils % 3.2; HCT 35.7 % (40.0-50.0); HGB 12.2 g/dL (13.5-17.5); Immature Grans % 0.5; Lymphocytes % 12.2; MCH 33.3 pg (27.0-33.0); MCHC 34.2 % (32.0-36.0); MCV 98 fL (80-95); MPV 9.6 fL (8.0-11.0); Monocytes % 10.2; Neutrophils % 73.2; Platelet Count 279 10^3/uL (130-400); RBC 3.66 10^6/uL (4.36-5.78); RDW 18.6 % (11.8-14.1); RDW-SD 66.2 fL; WBC 5.58 10^3/uL (4.4-10.8)
[2023-05-29 08:53] LABS: ALT 21 U/L (16-63); AST 15 U/L (15-37); Albumin 3.6 g/dL (3.4-5.0); Alkaline Phosphatase 84 U/L (46-116); Anion Gap 8.7 mmol/L (3-11); BUN 14 mg/dL (7-18); Bilirubin, Total 0.4 mg/dL (0.2-1.0); CO2 28.3 mmol/L (21.0-32.0); CREATININE 0.7 mg/dL (0.70-1.30); Calcium 9.4 mg/dL (8.5-10.1); Chloride 102 mmol/L (98-107); Estimated GFR 112.25 (mL/min/1.73m2); Glucose 106 mg/dL (74-106); Magnesium 1.8 mg/dL (1.8-2.4); Potassium 3.7 mmol/L (3.5-5.1); Sodium 139 mmol/L (136-145); Total Protein 7.7 g/dL (6.4-8.2)
[2023-06-04] MEDS: Normal Saline Flush 10 ML SYR IVP (08:55)
[2023-06-04 09:14] LABS: Abs Immature Grans 0.02 10^3/uL (0.0-0.06); Absolute Basophil Count 0.03 10^3/uL (0.0-0.2); Absolute Eosinophil Count 0.21 10^3/uL (0.0-0.7); Absolute Lymphocyte Count 0.55 10^3/uL (1.2-3.4); Absolute Monocyte Count 0.34 10^3/uL (0.1-0.8); Absolute Neutrophil Count 5.95 10^3/uL (1.2-6.7); Basophils % 0.4; HCT 34.6 % (40.0-50.0); HGB 11.9 g/dL (13.5-17.5); Immature Grans % 0.3; Lymphocytes % 7.7; MCH 33.1 pg (27.0-33.0); MCHC 34.4 % (32.0-36.0); MCV 96 fL (80-95); MPV 9.2 fL (8.0-11.0); Monocytes % 4.8; Neutrophils % 83.8; Platelet Count 345 10^3/uL (130-400); RDW-SD 59.8 fL
[2023-06-04 09:29] LABS: ALT 21 U/L (16-63); AST 13 U/L (15-37); Albumin 3.7 g/dL (3.4-5.0); Alkaline Phosphatase 78 U/L (46-116); Anion Gap 9.2 mmol/L (3-11); BUN 19 mg/dL (7-18); Bilirubin, Total 0.5 mg/dL (0.2-1.0); CO2 27.8 mmol/L (21.0-32.0); CREATININE 0.8 mg/dL (0.70-1.30); Calcium 9.3 mg/dL (8.5-10.1); Chloride 100 mmol/L (98-107); Estimated GFR 107.82 (mL/min/1.73m2); Glucose 131 mg/dL (74-106); Magnesium 1.7 mg/dL (1.8-2.4); Potassium 3.4 mmol/L (3.5-5.1); Sodium 137 mmol/L (136-145); Total Protein 7.5 g/dL (6.4-8.2)
[2023-06-11 09:15] LABS: Abs Immature Grans 0.01 10^3/uL (0.0-0.06); Absolute Basophil Count 0.02 10^3/uL (0.0-0.2); Absolute Eosinophil Count 0.07 10^3/uL (0.0-0.7); Absolute Lymphocyte Count 0.58 10^3/uL (1.2-3.4); Absolute Monocyte Count 0.64 10^3/uL (0.1-0.8); Absolute Neutrophil Count 4.34 10^3/uL (1.2-6.7); Basophils % 0.4; Eosinophils % 1.2; HCT 32.8 % (40.0-50.0); HGB 11.4 g/dL (13.5-17.5); Immature Grans % 0.2; Lymphocytes % 10.2; MCH 33.9 pg (27.0-33.0); MCHC 34.8 % (32.0-36.0); MCV 98 fL (80-95); MPV 9.2 fL (8.0-11.0); Monocytes % 11.3; Neutrophils % 76.7; Platelet Count 200 10^3/uL (130-400); RBC 3.36 10^6/uL (4.36-5.78); RDW 16.6 % (11.8-14.1); WBC 5.66 10^3/uL (4.4-10.8)
[2023-06-11] MEDS: Normal Saline Flush 10 ML SYR IVP (09:15)
[2023-06-11 09:29] LABS: ALT 20 U/L (16-63); AST 14 U/L (15-37); Albumin 3.6 g/dL (3.4-5.0); Alkaline Phosphatase 78 U/L (46-116); Anion Gap 10.7 mmol/L (3-11); BUN 16 mg/dL (7-18); Bilirubin, Total 0.3 mg/dL (0.2-1.0); CO2 26.3 mmol/L (21.0-32.0); CREATININE 0.8 mg/dL (0.70-1.30); Calcium 9.3 mg/dL (8.5-10.1); Chloride 99 mmol/L (98-107); Estimated GFR 107.82 (mL/min/1.73m2); Glucose 109 mg/dL (74-106); Magnesium 1.7 mg/dL (1.8-2.4); Potassium 3.7 mmol/L (3.5-5.1); Sodium 136 mmol/L (136-145); Total Protein 7.7 g/dL (6.4-8.2)
[2023-06-18] MEDS: Normal Saline Flush 10 ML SYR IVP (07:48)
[2023-06-18 08:19] LABS: Abs Immature Grans 0.01 10^3/uL (0.0-0.06); Absolute Basophil Count 0.02 10^3/uL (0.0-0.2); Absolute Eosinophil Count 0.11 10^3/uL (0.0-0.7); Absolute Lymphocyte Count 0.75 10^3/uL (1.2-3.4); Absolute Neutrophil Count 2.44 10^3/uL (1.2-6.7); Basophils % 0.5; Eosinophils % 2.8; HCT 34.9 % (40.0-50.0); HGB 11.9 g/dL (13.5-17.5); Immature Grans % 0.3; Lymphocytes % 19.1; MCH 33.8 pg (27.0-33.0); MCHC 34.1 % (32.0-36.0); MCV 99 fL (80-95); MPV 9.6 fL (8.0-11.0); Monocytes % 15.3; Platelet Count 174 10^3/uL (130-400); RBC 3.52 10^6/uL (4.36-5.78); RDW 16.4 % (11.8-14.1); RDW-SD 60.3 fL; WBC 3.93 10^3/uL (4.4-10.8)
[2023-06-18 08:45] LABS: ALT 22 U/L (16-63); AST 15 U/L (15-37); Albumin 3.7 g/dL (3.4-5.0); Alkaline Phosphatase 77 U/L (46-116); Anion Gap 11.3 mmol/L (3-11); BUN 17 mg/dL (7-18); Bilirubin, Total 0.4 mg/dL (0.2-1.0); CO2 26.7 mmol/L (21.0-32.0); CREATININE 0.8 mg/dL (0.70-1.30); Calcium 9.5 mg/dL (8.5-10.1); Chloride 100 mmol/L (98-107); Estimated GFR 107.82 (mL/min/1.73m2); Glucose 135 mg/dL (74-106); Magnesium 1.7 mg/dL (1.8-2.4); Potassium 3.6 mmol/L (3.5-5.1); Sodium 138 mmol/L (136-145); Total Protein 7.7 g/dL (6.4-8.2)
[2023-06-25 11:29] LABS: Abs Immature Grans 0.02 10^3/uL (0.0-0.06); Absolute Basophil Count 0.03 10^3/uL (0.0-0.2); Absolute Eosinophil Count 0.06 10^3/uL (0.0-0.7); Absolute Lymphocyte Count 0.54 10^3/uL (1.2-3.4); Absolute Monocyte Count 0.14 10^3/uL (0.1-0.8); Absolute Neutrophil Count 2.46 10^3/uL (1.2-6.7); Basophils % 0.9; Eosinophils % 1.8; HCT 34.7 % (40.0-50.0); HGB 12.2 g/dL (13.5-17.5); Immature Grans % 0.6; Lymphocytes % 16.6; MCH 34.5 pg (27.0-33.0); MCHC 35.2 % (32.0-36.0); MCV 98 fL (80-95); MPV 9.2 fL (8.0-11.0); Monocytes % 4.3; Neutrophils % 75.8; Platelet Count 181 10^3/uL (130-400); RBC 3.54 10^6/uL (4.36-5.78); RDW 14.9 % (11.8-14.1); RDW-SD 54.4 fL; WBC 3.25 10^3/uL (4.4-10.8)
[2023-06-25] MEDS: Normal Saline Flush 10 ML SYR IVP (11:30)
[2023-06-25 11:57] LABS: ALT 22 U/L (16-63); AST 13 U/L (15-37); Albumin 3.8 g/dL (3.4-5.0); Alkaline Phosphatase 81 U/L (46-116); Anion Gap 10.1 mmol/L (3-11); BUN 15 mg/dL (7-18); Bilirubin, Total 0.3 mg/dL (0.2-1.0); CO2 26.9 mmol/L (21.0-32.0); CREATININE 0.8 mg/dL (0.70-1.30); Calcium 9.4 mg/dL (8.5-10.1); Chloride 101 mmol/L (98-107); Estimated GFR 107.82 (mL/min/1.73m2); Glucose 118 mg/dL (74-106); Magnesium 1.5 mg/dL (1.8-2.4); Potassium 3.7 mmol/L (3.5-5.1); Sodium 138 mmol/L (136-145); Total Protein 7.7 g/dL (6.4-8.2)
== END 2023-06-27 23:59 | disposition home or self-care (01) ==
LOC: INF 03:08
PROVIDERS: PCP Family Medicine; Visit Provider Internal Medicine Hematology & Oncology
DX: C09.9 Malignant neoplasm of tonsil, unspecified (principal); Z45.2 Encounter for adjustment and management of vascular access device
CPT/HCPCS: 36591; 80053; 83735; 85025

== ENCOUNTER 2023-07-23 03:51 | Outpatient (RCR) | payer BC, MEDICAID, SELFPAY ==
[2023-07-02] MEDS: Normal Saline Flush 10 ML SYR IVP (07:49)
[2023-07-02 07:57] LABS: Abs Immature Grans 0.01 10^3/uL (0.0-0.06); Absolute Basophil Count 0.02 10^3/uL (0.0-0.2); Absolute Eosinophil Count 0.07 10^3/uL (0.0-0.7); Absolute Lymphocyte Count 0.89 10^3/uL (1.2-3.4); Absolute Monocyte Count 0.58 10^3/uL (0.1-0.8); Absolute Neutrophil Count 1.44 10^3/uL (1.2-6.7); Basophils % 0.7; Eosinophils % 2.3; HCT 33.6 % (40.0-50.0); HGB 11.7 g/dL (13.5-17.5); Immature Grans % 0.3; Lymphocytes % 29.6; MCH 34.7 pg (27.0-33.0); MCHC 34.8 % (32.0-36.0); MCV 100 fL (80-95); MPV 9.7 fL (8.0-11.0); Monocytes % 19.3; Neutrophils % 47.8; Platelet Count 172 10^3/uL (130-400); RBC 3.37 10^6/uL (4.36-5.78); RDW 15.3 % (11.8-14.1); WBC 3.01 10^3/uL (4.4-10.8)
[2023-07-02 08:12] LABS: ALT 22 U/L (16-63); AST 15 U/L (15-37); Albumin 3.6 g/dL (3.4-5.0); Alkaline Phosphatase 74 U/L (46-116); Anion Gap 8.9 mmol/L (3-11); BUN 18 mg/dL (7-18); Bilirubin, Total 0.3 mg/dL (0.2-1.0); CO2 27.1 mmol/L (21.0-32.0); CREATININE 0.8 mg/dL (0.70-1.30); Calcium 9.1 mg/dL (8.5-10.1); Chloride 102 mmol/L (98-107); Estimated GFR 107.82 (mL/min/1.73m2); Glucose 126 mg/dL (74-106); Magnesium 1.6 mg/dL (1.8-2.4); Potassium 3.3 mmol/L (3.5-5.1); Sodium 138 mmol/L (136-145); Total Protein 7.4 g/dL (6.4-8.2)
[2023-07-09 09:28] LABS: Abs Immature Grans 0.01 10^3/uL (0.0-0.06); Absolute Basophil Count 0.03 10^3/uL (0.0-0.2); Absolute Eosinophil Count 0.06 10^3/uL (0.0-0.7); Absolute Lymphocyte Count 0.48 10^3/uL (1.2-3.4); Absolute Monocyte Count 0.53 10^3/uL (0.1-0.8); Basophils % 0.9; Eosinophils % 1.8; HGB 12.5 g/dL (13.5-17.5); Immature Grans % 0.3; Lymphocytes % 14.5; MCH 34.8 pg (27.0-33.0); MCHC 34.7 % (32.0-36.0); MCV 100 fL (80-95); MPV 9.7 fL (8.0-11.0); Neutrophils % 66.5; Platelet Count 225 10^3/uL (130-400); RBC 3.59 10^6/uL (4.36-5.78); RDW 15.2 % (11.8-14.1); WBC 3.31 10^3/uL (4.4-10.8)
[2023-07-09 09:46] LABS: ALT 23 U/L (16-63); AST 15 U/L (15-37); Albumin 3.8 g/dL (3.4-5.0); Alkaline Phosphatase 92 U/L (46-116); Anion Gap 12.7 mmol/L (3-11); BUN 15 mg/dL (7-18); Bilirubin, Total 0.2 mg/dL (0.2-1.0); CO2 25.3 mmol/L (21.0-32.0); CREATININE 0.8 mg/dL (0.70-1.30); Calcium 9.2 mg/dL (8.5-10.1); Chloride 102 mmol/L (98-107); Estimated GFR 107.82 (mL/min/1.73m2); Glucose 131 mg/dL (74-106); Magnesium 1.7 mg/dL (1.8-2.4); Potassium 3.7 mmol/L (3.5-5.1); Sodium 140 mmol/L (136-145); Total Protein 7.8 g/dL (6.4-8.2)
[2023-07-09] MEDS: Normal Saline Flush 10 ML SYR IVP (10:42)
[2023-07-16] MEDS: Normal Saline Flush 10 ML SYR IVP (11:44)
[2023-07-16 12:16] LABS: Abs Immature Grans 0.02 10^3/uL (0.0-0.06); Absolute Basophil Count 0.05 10^3/uL (0.0-0.2); Absolute Eosinophil Count 0.11 10^3/uL (0.0-0.7); Absolute Lymphocyte Count 0.84 10^3/uL (1.2-3.4); Absolute Monocyte Count 0.64 10^3/uL (0.1-0.8); Absolute Neutrophil Count 3.54 10^3/uL (1.2-6.7); Eosinophils % 2.1; HCT 36.7 % (40.0-50.0); HGB 12.7 g/dL (13.5-17.5); Immature Grans % 0.4; Lymphocytes % 16.2; MCH 34.1 pg (27.0-33.0); MCHC 34.6 % (32.0-36.0); MCV 99 fL (80-95); MPV 9.9 fL (8.0-11.0); Monocytes % 12.3; Platelet Count 257 10^3/uL (130-400); RBC 3.72 10^6/uL (4.36-5.78); RDW 14.6 % (11.8-14.1); RDW-SD 53.3 fL
[2023-07-16 12:49] LABS: ALT 25 U/L (16-63); AST 18 U/L (15-37); Albumin 3.8 g/dL (3.4-5.0); Alkaline Phosphatase 93 U/L (46-116); Anion Gap 11.9 mmol/L (3-11); BUN 17 mg/dL (7-18); Bilirubin, Total 0.3 mg/dL (0.2-1.0); CO2 27.1 mmol/L (21.0-32.0); CREATININE 0.8 mg/dL (0.70-1.30); Calcium 9.2 mg/dL (8.5-10.1); Chloride 100 mmol/L (98-107); Estimated GFR 107.82 (mL/min/1.73m2); Glucose 114 mg/dL (74-106); Magnesium 1.6 mg/dL (1.8-2.4); Potassium 3.5 mmol/L (3.5-5.1); Sodium 139 mmol/L (136-145); Total Protein 7.7 g/dL (6.4-8.2)
[2023-07-23] MEDS: Normal Saline Flush 10 ML SYR IVP (09:18)
[2023-07-23 09:43] LABS: Abs Immature Grans 0.02 10^3/uL (0.0-0.06); Absolute Basophil Count 0.04 10^3/uL (0.0-0.2); Absolute Lymphocyte Count 0.79 10^3/uL (1.2-3.4); Absolute Monocyte Count 0.65 10^3/uL (0.1-0.8); Absolute Neutrophil Count 5.53 10^3/uL (1.2-6.7); Basophils % 0.5; Eosinophils % 4.1; HCT 38.9 % (40.0-50.0); HGB 13.4 g/dL (13.5-17.5); Immature Grans % 0.3; Lymphocytes % 10.8; MCH 33.8 pg (27.0-33.0); MCHC 34.4 % (32.0-36.0); MCV 98 fL (80-95); MPV 9.9 fL (8.0-11.0); Monocytes % 8.9; Neutrophils % 75.4; Platelet Count 289 10^3/uL (130-400); RBC 3.96 10^6/uL (4.36-5.78); RDW 14.1 % (11.8-14.1); RDW-SD 51.5 fL; WBC 7.33 10^3/uL (4.4-10.8)
[2023-07-23 10:03] LABS: ALT 25 U/L (16-63); AST 15 U/L (15-37); Albumin 3.8 g/dL (3.4-5.0); Alkaline Phosphatase 95 U/L (46-116); Anion Gap 12.4 mmol/L (3-11); BUN 15 mg/dL (7-18); Bilirubin, Total 0.3 mg/dL (0.2-1.0); CO2 25.6 mmol/L (21.0-32.0); CREATININE 0.8 mg/dL (0.70-1.30); Calcium 9.1 mg/dL (8.5-10.1); Chloride 101 mmol/L (98-107); Estimated GFR 107.82 (mL/min/1.73m2); Glucose 124 mg/dL (74-106); Magnesium 1.5 mg/dL (1.8-2.4); Potassium 3.2 mmol/L (3.5-5.1); Sodium 139 mmol/L (136-145); Total Protein 7.8 g/dL (6.4-8.2)
== END 2023-07-26 23:59 | disposition home or self-care (01) ==
LOC: INF 03:51
PROVIDERS: PCP Family Medicine; Visit Provider Internal Medicine Hematology & Oncology
DX: C09.9 Malignant neoplasm of tonsil, unspecified (principal); Z45.2 Encounter for adjustment and management of vascular access device
CPT/HCPCS: 36591; 80053; 83735; 85025

== ENCOUNTER 2023-08-20 04:37 | Outpatient (RCR) | payer BC, MEDICAID, SELFPAY ==
[2023-08-06] MEDS: Normal Saline Flush 10 ML SYR IVP (09:33)
[2023-08-06 09:55] LABS: Abs Immature Grans 0.02 10^3/uL (0.0-0.06); Absolute Basophil Count 0.06 10^3/uL (0.0-0.2); Absolute Eosinophil Count 0.36 10^3/uL (0.0-0.7); Absolute Lymphocyte Count 0.94 10^3/uL (1.2-3.4); Absolute Monocyte Count 0.73 10^3/uL (0.1-0.8); Absolute Neutrophil Count 4.82 10^3/uL (1.2-6.7); Basophils % 0.9; Eosinophils % 5.2; HCT 38.2 % (40.0-50.0); HGB 13.1 g/dL (13.5-17.5); Immature Grans % 0.3; Lymphocytes % 13.6; MCH 32.8 pg (27.0-33.0); MCHC 34.3 % (32.0-36.0); MCV 96 fL (80-95); MPV 9.8 fL (8.0-11.0); Monocytes % 10.5; Neutrophils % 69.5; Platelet Count 301 10^3/uL (130-400); RBC 3.99 10^6/uL (4.36-5.78); RDW 13.6 % (11.8-14.1); RDW-SD 48.1 fL; WBC 6.93 10^3/uL (4.4-10.8)
[2023-08-06 10:23] LABS: ALT 20 U/L (16-63); AST 16 U/L (15-37); Albumin 3.6 g/dL (3.4-5.0); Alkaline Phosphatase 94 U/L (46-116); Anion Gap 9.8 mmol/L (3-11); BUN 18 mg/dL (7-18); Bilirubin, Total 0.3 mg/dL (0.2-1.0); CO2 27.2 mmol/L (21.0-32.0); CREATININE 0.8 mg/dL (0.70-1.30); Calcium 9.1 mg/dL (8.5-10.1); Chloride 102 mmol/L (98-107); Estimated GFR 107.82 (mL/min/1.73m2); Glucose 117 mg/dL (74-106); Magnesium 1.5 mg/dL (1.8-2.4); Potassium 3.6 mmol/L (3.5-5.1); Sodium 139 mmol/L (136-145); Total Protein 7.6 g/dL (6.4-8.2)
[2023-08-20] MEDS: Normal Saline Flush 10 ML SYR IVP (08:39)
[2023-08-20 08:46] LABS: Abs Immature Grans 0.04 10^3/uL (0.0-0.06); Absolute Basophil Count 0.06 10^3/uL (0.0-0.2); Absolute Eosinophil Count 0.27 10^3/uL (0.0-0.7); Absolute Lymphocyte Count 1.15 10^3/uL (1.2-3.4); Absolute Monocyte Count 0.83 10^3/uL (0.1-0.8); Absolute Neutrophil Count 6.97 10^3/uL (1.2-6.7); Basophils % 0.6; Eosinophils % 2.9; HCT 41.5 % (40.0-50.0); HGB 14.1 g/dL (13.5-17.5); Immature Grans % 0.4; Lymphocytes % 12.3; MCH 32.1 pg (27.0-33.0); MCV 95 fL (80-95); MPV 9.1 fL (8.0-11.0); Monocytes % 8.9; Neutrophils % 74.9; Platelet Count 347 10^3/uL (130-400); RBC 4.39 10^6/uL (4.36-5.78); RDW-SD 48.4 fL; WBC 9.32 10^3/uL (4.4-10.8)
[2023-08-20 09:04] LABS: ALT 24 U/L (16-63); AST 17 U/L (15-37); Albumin 3.6 g/dL (3.4-5.0); Alkaline Phosphatase 101 U/L (46-116); Anion Gap 11.1 mmol/L (3-11); BUN 13 mg/dL (7-18); Bilirubin, Total 0.3 mg/dL (0.2-1.0); CO2 27.9 mmol/L (21.0-32.0); CREATININE 0.9 mg/dL (0.70-1.30); Calcium 9.3 mg/dL (8.5-10.1); Chloride 101 mmol/L (98-107); Estimated GFR 104.05 (mL/min/1.73m2); Glucose 140 mg/dL (74-106); Magnesium 1.7 mg/dL (1.8-2.4); Potassium 3.3 mmol/L (3.5-5.1); Sodium 140 mmol/L (136-145)
== END 2023-08-26 23:59 | disposition home or self-care (01) ==
LOC: INF 04:37
PROVIDERS: PCP Family Medicine; Visit Provider Internal Medicine Hematology & Oncology
DX: C09.9 Malignant neoplasm of tonsil, unspecified (principal); Z45.2 Encounter for adjustment and management of vascular access device
CPT/HCPCS: 36591; 80053; 83735; 85025

== ENCOUNTER 2023-09-17 04:52 | Outpatient (RCR) | payer BC, MEDICAID, SELFPAY ==
[2023-09-03] MEDS: Normal Saline Flush 10 ML SYR IVP (08:22)
[2023-09-03 08:30] LABS: Abs Immature Grans 0.02 10^3/uL (0.0-0.06); Absolute Basophil Count 0.05 10^3/uL (0.0-0.2); Absolute Eosinophil Count 0.49 10^3/uL (0.0-0.7); Absolute Lymphocyte Count 1.08 10^3/uL (1.2-3.4); Absolute Monocyte Count 0.76 10^3/uL (0.1-0.8); Absolute Neutrophil Count 4.28 10^3/uL (1.2-6.7); Basophils % 0.7; Eosinophils % 7.3; HCT 40.1 % (40.0-50.0); HGB 13.3 g/dL (13.5-17.5); Immature Grans % 0.3; Lymphocytes % 16.2; MCH 30.4 pg (27.0-33.0); MCHC 33.2 % (32.0-36.0); MCV 92 fL (80-95); Monocytes % 11.4; Neutrophils % 64.1; Platelet Count 303 10^3/uL (130-400); RBC 4.37 10^6/uL (4.36-5.78); RDW 14.2 % (11.8-14.1); RDW-SD 48.3 fL; WBC 6.68 10^3/uL (4.4-10.8)
[2023-09-03 08:55] LABS: ALT 24 U/L (16-63); AST 16 U/L (15-37); Albumin 3.5 g/dL (3.4-5.0); Alkaline Phosphatase 99 U/L (46-116); BUN 14 mg/dL (7-18); Bilirubin, Total 0.3 mg/dL (0.2-1.0); CREATININE 0.8 mg/dL (0.70-1.30); Calcium 9.2 mg/dL (8.5-10.1); Chloride 102 mmol/L (98-107); Estimated GFR 107.82 (mL/min/1.73m2); Glucose 105 mg/dL (74-106); Magnesium 1.4 mg/dL (1.8-2.4); Potassium 3.6 mmol/L (3.5-5.1); Sodium 140 mmol/L (136-145); Total Protein 7.4 g/dL (6.4-8.2)
[2023-09-17] MEDS: Normal Saline Flush 10 ML SYR IVP (09:46)
[2023-09-17 10:04] LABS: Abs Immature Grans 0.01 10^3/uL (0.0-0.06); Absolute Basophil Count 0.05 10^3/uL (0.0-0.2); Absolute Eosinophil Count 0.38 10^3/uL (0.0-0.7); Absolute Lymphocyte Count 1.06 10^3/uL (1.2-3.4); Absolute Neutrophil Count 5.72 10^3/uL (1.2-6.7); Basophils % 0.6; Eosinophils % 4.7; HCT 37.7 % (40.0-50.0); HGB 12.6 g/dL (13.5-17.5); Immature Grans % 0.1; Lymphocytes % 13.1; MCH 29.9 pg (27.0-33.0); MCHC 33.4 % (32.0-36.0); MCV 90 fL (80-95); Monocytes % 11.1; Neutrophils % 70.4; Platelet Count 292 10^3/uL (130-400); RBC 4.21 10^6/uL (4.36-5.78); RDW 14.8 % (11.8-14.1); RDW-SD 48.8 fL; WBC 8.12 10^3/uL (4.4-10.8)
[2023-09-17 10:20] LABS: ALT 22 U/L (16-63); AST 18 U/L (15-37); Albumin 3.3 g/dL (3.4-5.0); Alkaline Phosphatase 78 U/L (46-116); Anion Gap 13.4 mmol/L (3-11); BUN 9 mg/dL (7-18); Bilirubin, Total 0.3 mg/dL (0.2-1.0); CO2 26.6 mmol/L (21.0-32.0); CREATININE 0.8 mg/dL (0.70-1.30); Calcium 8.9 mg/dL (8.5-10.1); Chloride 101 mmol/L (98-107); Estimated GFR 107.82 (mL/min/1.73m2); Glucose 93 mg/dL (74-106); Magnesium 1.6 mg/dL (1.8-2.4); Potassium 3.5 mmol/L (3.5-5.1); Sodium 141 mmol/L (136-145); Total Protein 7.5 g/dL (6.4-8.2)
== END 2023-09-25 23:59 | disposition home or self-care (01) ==
LOC: INF 04:52
PROVIDERS: PCP Family Medicine; Visit Provider Internal Medicine Hematology & Oncology
DX: C09.9 Malignant neoplasm of tonsil, unspecified (principal); Z45.2 Encounter for adjustment and management of vascular access device
CPT/HCPCS: 36591; 80053; 83735; 85025

== ENCOUNTER 2023-10-01 04:55 | Outpatient (RCR) | payer BC, MEDICAID, SELFPAY ==
[2023-10-01] MEDS: Normal Saline Flush 10 ML SYR IVP (07:20)
[2023-10-01 07:57] LABS: Abs Immature Grans 0.05 10^3/uL (0.0-0.06); Absolute Basophil Count 0.05 10^3/uL (0.0-0.2); Absolute Eosinophil Count 0.31 10^3/uL (0.0-0.7); Absolute Lymphocyte Count 1.13 10^3/uL (1.2-3.4); Absolute Monocyte Count 1.05 10^3/uL (0.1-0.8); Absolute Neutrophil Count 7.63 10^3/uL (1.2-6.7); Basophils % 0.5 %; HCT 41.2 % (40.0-50.0); HGB 13.7 g/dL (13.5-17.5); Immature Grans % 0.5 %; Lymphocytes % 11.1 %; MCH 29.1 pg (27.0-33.0); MCHC 33.3 % (32.0-36.0); MCV 88 fL (80-95); MPV 8.3 fL (8.0-11.0); Monocytes % 10.3 %; Neutrophils % 74.6 %; Platelet Count 301 10^3/uL (130-400); RDW 14.6 % (11.8-14.1); RDW-SD 47.3 fL; WBC 10.22 10^3/uL (4.4-10.8)
[2023-10-01 08:15] LABS: ALT 21 U/L (16-63); AST 17 U/L (15-37); Albumin 3.4 g/dL (3.4-5.0); Alkaline Phosphatase 105 U/L (46-116); Anion Gap 8.5 mmol/L (3-11); BUN 12 mg/dL (7-18); Bilirubin, Total 0.4 mg/dL (0.2-1.0); CO2 28.5 mmol/L (21.0-32.0); CREATININE 0.8 mg/dL (0.70-1.30); Chloride 98 mmol/L (98-107); Estimated GFR 107.15 (mL/min/1.73m2); Glucose 107 mg/dL (74-106); Magnesium 1.5 mg/dL (1.8-2.4); Potassium 3.5 mmol/L (3.5-5.1); Sodium 135 mmol/L (136-145); Total Protein 7.5 g/dL (6.4-8.2)
[2023-10-01 09:36] LABS: FREE T4 0.99 ng/dL (0.76-1.46)
== END 2023-10-26 23:59 | disposition home or self-care (01) ==
LOC: INF 04:55
PROVIDERS: PCP Family Medicine; Visit Provider Internal Medicine Hematology & Oncology
DX: C09.9 Malignant neoplasm of tonsil, unspecified (principal); Z79.899 Other long term (current) drug therapy; Z45.2 Encounter for adjustment and management of vascular access device
CPT/HCPCS: 36591; 80053; 83735; 84439; 84443; 85025

== ENCOUNTER 2023-11-19 02:47 | Outpatient (RCR) | payer BC, MEDICAID, SELFPAY ==
[2023-10-29] MEDS: Normal Saline Flush 10 ML SYR IVP (08:08)
[2023-10-29 08:39] LABS: Abs Immature Grans 0.06 10^3/uL (0.0-0.06); Absolute Eosinophil Count 0.02 10^3/uL (0.0-0.7); Absolute Monocyte Count 1.25 10^3/uL (0.1-0.8); Basophils % 0.3 %; Eosinophils % 0.1 %; HGB 11.6 g/dL (13.5-17.5); Immature Grans % 0.4 %; Lymphocytes % 2.4 %; MCH 26.7 pg (27.0-33.0); MCHC 33.1 % (32.0-36.0); MCV 81 fL (80-95); MPV 9.2 fL (8.0-11.0); Monocytes % 8.2 %; Neutrophils % 88.6 %; Platelet Count 429 10^3/uL (130-400); RBC 4.34 10^6/uL (4.36-5.78); RDW 15.1 % (11.8-14.1); RDW-SD 44.6 fL; WBC 15.25 10^3/uL (4.4-10.8)
[2023-10-29 08:40] LABS: Absolute Basophil Count 0.05 10^3/uL (0.0-0.2); Absolute Lymphocyte Count 0.37 10^3/uL (1.2-3.4); Absolute Neutrophil Count 13.51 10^3/uL (1.2-6.7)
[2023-10-29 08:54] LABS: ALT 28 U/L (16-63); AST 24 U/L (15-37); Albumin 2.9 g/dL (3.4-5.0); Alkaline Phosphatase 80 U/L (46-116); Anion Gap 11.5 mmol/L (3-11); BUN 15 mg/dL (7-18); Bilirubin, Total 0.6 mg/dL (0.2-1.0); CO2 26.5 mmol/L (21.0-32.0); Calcium 9.4 mg/dL (8.5-10.1); Chloride 94 mmol/L (98-107); Estimated GFR 91.12 (mL/min/1.73m2); Glucose 141 mg/dL (74-106); Magnesium 1.9 mg/dL (1.8-2.4); Potassium 3.7 mmol/L (3.5-5.1); Sodium 132 mmol/L (136-145); Total Protein 7.9 g/dL (6.4-8.2)
[2023-10-29 10:13] LABS: FREE T4 1.24 ng/dL (0.76-1.46)
[2023-11-19 08:55] LABS: Abs Immature Grans 0.03 10^3/uL (0.0-0.06); Absolute Basophil Count 0.05 10^3/uL (0.0-0.2); Absolute Eosinophil Count 0.01 10^3/uL (0.0-0.7); Absolute Lymphocyte Count 0.46 10^3/uL (1.2-3.4); Absolute Monocyte Count 0.74 10^3/uL (0.1-0.8); Absolute Neutrophil Count 7.33 10^3/uL (1.2-6.7); Basophils % 0.6 %; Eosinophils % 0.1 %; HCT 31.4 % (40.0-50.0); HGB 10.2 g/dL (13.5-17.5); Immature Grans % 0.3 %; Lymphocytes % 5.3 %; MCH 25.9 pg (27.0-33.0); MCHC 32.5 % (32.0-36.0); MCV 80 fL (80-95); MPV 8.3 fL (8.0-11.0); Monocytes % 8.6 %; Neutrophils % 85.1 %; Platelet Count 525 10^3/uL (130-400); RBC 3.94 10^6/uL (4.36-5.78); RDW 16.7 % (11.8-14.1); RDW-SD 48.6 fL; WBC 8.62 10^3/uL (4.4-10.8)
[2023-11-19] MEDS: Normal Saline Flush 10 ML SYR IVP (09:05)
[2023-11-19 09:16] LABS: ALT 29 U/L (16-63); AST 14 U/L (15-37); Albumin 2.7 g/dL (3.4-5.0); Alkaline Phosphatase 72 U/L (46-116); BUN 16 mg/dL (7-18); Bilirubin, Total 0.24 mg/dL (0.2-1.0); CREATININE 0.9 mg/dL (0.70-1.30); Calcium 9.3 mg/dL (8.5-10.1); Chloride 100 mmol/L (98-107); Glucose 135 mg/dL (74-106); Magnesium 1.9 mg/dL (1.8-2.4); Potassium 3.9 mmol/L (3.5-5.1); Sodium 137 mmol/L (136-145); Total Protein 7.5 g/dL (6.4-8.2)
== END 2023-11-25 23:59 | disposition home or self-care (01) ==
LOC: INF 02:47
PROVIDERS: PCP Family Medicine; Visit Provider Internal Medicine Hematology & Oncology
DX: Z45.2 Encounter for adjustment and management of vascular access device (principal); C09.9 Malignant neoplasm of tonsil, unspecified
CPT/HCPCS: 36591; 80053; 83735; 84439; 84443; 85025

== ENCOUNTER 2023-12-10 03:22 | Outpatient (RCR) | payer BC, MEDICAID, SELFPAY ==
[2023-12-10] MEDS: Normal Saline Flush 10 ML SYR IVP (12:37)
[2023-12-10 12:57] LABS: Abs Immature Grans 0.02 10^3/uL (0.0-0.06); Absolute Basophil Count 0.07 10^3/uL (0.0-0.2); Absolute Eosinophil Count 0.17 10^3/uL (0.0-0.7); Absolute Lymphocyte Count 0.45 10^3/uL (1.2-3.4); Absolute Monocyte Count 0.91 10^3/uL (0.1-0.8); Absolute Neutrophil Count 6.19 10^3/uL (1.2-6.7); Basophils % 0.9 %; Eosinophils % 2.2 %; HCT 34.4 % (40.0-50.0); Immature Grans % 0.3 %; Lymphocytes % 5.8 %; MCH 25.5 pg (27.0-33.0); MCV 80 fL (80-95); MPV 8.4 fL (8.0-11.0); Monocytes % 11.7 %; Neutrophils % 79.1 %; Platelet Count 461 10^3/uL (130-400); RBC 4.32 10^6/uL (4.36-5.78); RDW 16.8 % (11.8-14.1); RDW-SD 48.4 fL; WBC 7.81 10^3/uL (4.4-10.8)
[2023-12-10 13:12] LABS: ALT 20 U/L (16-63); AST 12 U/L (15-37); Albumin 3.1 g/dL (3.4-5.0); Alkaline Phosphatase 85 U/L (46-116); Anion Gap 10.8 mmol/L (3-11); BUN 15 mg/dL (7-18); Bilirubin, Total 0.24 mg/dL (0.2-1.0); CO2 26.2 mmol/L (21.0-32.0); CREATININE 0.8 mg/dL (0.70-1.30); Calcium 9.1 mg/dL (8.5-10.1); Chloride 100 mmol/L (98-107); Estimated GFR 107.15 (mL/min/1.73m2); Glucose 112 mg/dL (74-106); Magnesium 1.7 mg/dL (1.8-2.4); Potassium 4.1 mmol/L (3.5-5.1); Sodium 137 mmol/L (136-145); Total Protein 7.8 g/dL (6.4-8.2)
== END 2023-12-26 23:59 | disposition home or self-care (01) ==
LOC: INF 03:22
PROVIDERS: PCP Family Medicine; Visit Provider Internal Medicine Hematology & Oncology
DX: Z45.2 Encounter for adjustment and management of vascular access device (principal); C09.9 Malignant neoplasm of tonsil, unspecified
CPT/HCPCS: 36591; 80053; 83735; 85025

== ENCOUNTER 2023-12-31 03:05 | Outpatient (RCR) | payer BC, MEDICAID, SELFPAY ==
[2023-12-31] MEDS: Normal Saline Flush 10 ML SYR IVP (13:40)
[2023-12-31 14:01] LABS: Abs Immature Grans 0.03 10^3/uL (0.0-0.06); Absolute Basophil Count 0.06 10^3/uL (0.0-0.2); Absolute Eosinophil Count 0.15 10^3/uL (0.0-0.7); Absolute Monocyte Count 0.82 10^3/uL (0.1-0.8); Absolute Neutrophil Count 7.98 10^3/uL (1.2-6.7); Basophils % 0.6 %; Eosinophils % 1.6 %; HCT 35.9 % (40.0-50.0); HGB 11.1 g/dL (13.5-17.5); Immature Grans % 0.3 %; Lymphocytes % 5.2 %; MCH 24.2 pg (27.0-33.0); MCHC 30.9 % (32.0-36.0); MCV 78 fL (80-95); MPV 8.4 fL (8.0-11.0); Monocytes % 8.6 %; Neutrophils % 83.7 %; Platelet Count 481 10^3/uL (130-400); RBC 4.58 10^6/uL (4.36-5.78); RDW 17.2 % (11.8-14.1); RDW-SD 48.5 fL; WBC 9.54 10^3/uL (4.4-10.8)
[2023-12-31 14:13] LABS: ALT 21 U/L (16-63); AST 14 U/L (15-37); Albumin 3.3 g/dL (3.4-5.0); Alkaline Phosphatase 87 U/L (46-116); Anion Gap 9.2 mmol/L (3-11); BUN 19 mg/dL (7-18); CO2 27.8 mmol/L (21.0-32.0); CREATININE 0.9 mg/dL (0.70-1.30); Calcium 9.8 mg/dL (8.5-10.1); Chloride 100 mmol/L (98-107); Glucose 127 mg/dL (74-106); Magnesium 1.9 mg/dL (1.8-2.4); Potassium 4.3 mmol/L (3.5-5.1); Sodium 137 mmol/L (136-145); Total Protein 7.9 g/dL (6.4-8.2)
== END 2024-01-26 23:59 | disposition home or self-care (01) ==
LOC: INF 03:05
PROVIDERS: PCP Family Medicine; Visit Provider Internal Medicine Hematology & Oncology
DX: C09.9 Malignant neoplasm of tonsil, unspecified (principal); Z45.2 Encounter for adjustment and management of vascular access device
CPT/HCPCS: 36591; 80053; 83735; 85025

== ENCOUNTER 2024-02-25 02:39 | Outpatient (RCR) | payer BC, MEDICAID, SELFPAY ==
[2024-01-30] MEDS: Normal Saline Flush 10 ML SYR IVP (08:35)
[2024-01-30 09:35] LABS: Absolute Lymphocyte Count 0.49 10^3/uL (1.2-3.4); Absolute Monocyte Count 1.38 10^3/uL (0.1-0.8); Basophils % 0.2 %; Eosinophils % 0.3 %; HCT 37.2 % (40.0-50.0); HGB 11.4 g/dL (13.5-17.5); Immature Grans % 0.5 %; Lymphocytes % 2.5 %; MCH 23.7 pg (27.0-33.0); MCHC 30.6 % (32.0-36.0); MCV 77 fL (80-95); Monocytes % 7.1 %; Neutrophils % 89.4 %; Platelet Count 456 10^3/uL (130-400); RBC 4.82 10^6/uL (4.36-5.78); RDW 19.9 % (11.8-14.1); WBC 19.41 10^3/uL (4.4-10.8)
[2024-01-30 09:38] LABS: Absolute Basophil Count 0.04 10^3/uL (0.0-0.2); Absolute Eosinophil Count 0.06 10^3/uL (0.0-0.7); Absolute Neutrophil Count 17.35 10^3/uL (1.2-6.7)
[2024-01-30 09:56] LABS: ALT 22 U/L (16-63); AST 22 U/L (15-37); Alkaline Phosphatase 84 U/L (46-116); Anion Gap 11.5 mmol/L (3-11); BUN 15 mg/dL (7-18); Bilirubin, Total 0.39 mg/dL (0.2-1.0); CO2 25.5 mmol/L (21.0-32.0); Calcium 9.8 mg/dL (8.5-10.1); Chloride 97 mmol/L (98-107); Estimated GFR 91.12 (mL/min/1.73m2); Glucose 146 mg/dL (74-106); Magnesium 1.9 mg/dL (1.8-2.4); Potassium 3.8 mmol/L (3.5-5.1); Sodium 134 mmol/L (136-145); Total Protein 7.6 g/dL (6.4-8.2)
[2024-02-25] MEDS: Normal Saline Flush 10 ML SYR IVP (11:14)
[2024-02-25 11:32] LABS: Abs Immature Grans 0.04 10^3/uL (0.0-0.06); Absolute Basophil Count 0.08 10^3/uL (0.0-0.2); Absolute Eosinophil Count 0.05 10^3/uL (0.0-0.7); Absolute Monocyte Count 1.13 10^3/uL (0.1-0.8); Basophils % 0.7 %; Eosinophils % 0.4 %; HCT 33.3 % (40.0-50.0); HGB 10.3 g/dL (13.5-17.5); Immature Grans % 0.3 %; Lymphocytes % 3.3 %; MCH 23.6 pg (27.0-33.0); MCHC 30.9 % (32.0-36.0); MCV 76 fL (80-95); MPV 8.2 fL (8.0-11.0); Monocytes % 9.4 %; Neutrophils % 85.9 %; Platelet Count 576 10^3/uL (130-400); RBC 4.37 10^6/uL (4.36-5.78); RDW 19.8 % (11.8-14.1); RDW-SD 52.7 fL; WBC 12.02 10^3/uL (4.4-10.8)
[2024-02-25 11:34] LABS: Absolute Neutrophil Count 10.33 10^3/uL (1.2-6.7)
[2024-02-25 11:48] LABS: ALT 16 U/L (16-63); AST 14 U/L (15-37); Albumin 2.8 g/dL (3.4-5.0); Alkaline Phosphatase 82 U/L (46-116); Anion Gap 11.2 mmol/L (3-11); BUN 16 mg/dL (7-18); Bilirubin, Total 0.21 mg/dL (0.2-1.0); CO2 28.8 mmol/L (21.0-32.0); CREATININE 0.8 mg/dL (0.70-1.30); Calcium 9.6 mg/dL (8.5-10.1); Chloride 97 mmol/L (98-107); Estimated GFR 107.15 (mL/min/1.73m2); Glucose 121 mg/dL (74-106); Magnesium 1.9 mg/dL (1.8-2.4); Sodium 137 mmol/L (136-145); Total Protein 7.6 g/dL (6.4-8.2)
== END 2024-02-25 23:59 | disposition home or self-care (01) ==
LOC: INF 02:39
PROVIDERS: PCP Family Medicine; Visit Provider Internal Medicine Hematology & Oncology
DX: C09.9 Malignant neoplasm of tonsil, unspecified (principal)
CPT/HCPCS: 36591; 80053; 83735; 85025